=== PATIENT | male | born 1965 | race Caucasian/White ===

== ENCOUNTER 2017-01-01 07:24 | Day surgery (SDC) | payer OTHER ==
[~2017-01-01] VITALS: Ht 185.4 cm; Wt 88.0 kg
[~2017-01-01 07:24] MED LIST: CAPS42.58 TP; GABA-504 PO; INSU100V7 SUBQ; LISI-567 PO; MELO-259 PO; METF-496 PO; OMEP40CA36 PO; PROP40TA5 PO; Sodium Chloride LOK Flush 10 mL Syringe IV PRN; fentaNYL-PF 50 mCg/mL 2 mL Inj IVPUSH PRN
[2017-01-01 07:41] VITALS: BP 144/83; PULSE 55; RESP 14; O2SAT 100
[2017-01-01] MEDS: 0.9% Sodium Chloride 1,000 ML IV SCH ×2 (08:01→08:10)
[2017-01-01 08:14] VITALS: BP 133/71; PULSE 52; RESP 16; O2SAT 97
[2017-01-01 08:29] VITALS: BP 112/69; PULSE 71; RESP 14; O2SAT 98
--- NOTE | 2017-01-01 09:09 | ENDO ---
[address] [address] ENDOSCOPY PROCEDURE PATIENT: MEREDITH CARTER : 1965 MR#: [id number] ADMIT: 01/01/2017 JOB ID: [id number] DATE: 01/01/2017 PROCEDURE: Esophagogastroduodenoscopy. INDICATION: The patient with a history of esophageal varices and cirrhosis secondary to hepatitis C. The patient presents for variceal screening. The patient's ASA classification is 2. Mallampati score is 2. MEDICATIONS: 1. Versed 4 mg. 2. Fentanyl 100 mcg. INSTRUMENT USED: GIF H 180 AL. PROCEDURE DETAILS: After informed consent was obtained, the patient was brought into the GI suite, where he was placed on oxygen via nasal cannula and monitored with continuous pulse oximeter, telemetry and blood pressure monitoring. A time-out was performed. Then, he was placed in the left lateral decubitus position and medications were administered for sedation. A bite block was placed. The standard EGD scope was then inserted through the bite block and advanced under direct visualization to the second portion of duodenum without difficulty. FINDINGS: 1. Normal appearing duodenal bulb, first and second portion. 2. Normal appearing pylorus. In the antrum of the body, there was erythema and edema with a nodular appearing mucosa suggestive of gastritis. Multiple random biopsies were obtained. 3. Retroflexed views in the gastric body revealed a normal-appearing cardia and fundus. No gastric varices were appreciated. 4. The gastroesophageal junction was at approximately 43 cm and appeared regular. 5. In the distal esophagus, there were trace esophageal varices that flattened out with insufflation. 6. Remainder of the esophagus appeared normal otherwise. IMPRESSION: 1. Trace esophageal varices. 2. Portal gastropathy. 3. Antral gastritis. RECOMMENDATIONS: 1. Continue current medications. 2. Await biopsy results. 3. Followup in GI clinic in 3-4 weeks. 4. Repeat EGD in 2-3 years. COMPLICATIONS: None. ESTIMATED BLOOD LOSS: Less than 5 mL.
--- NOTE | 2017-01-02 14:24 | PATH ---
SURGICAL PATHOLOGY Attending Physician:Brittany Felix CASE STATUS: Signed Out PATIENT NAME: MEREDITH CARTER PID: [id number] : 1965 DATE COLLECTED:01/01/2017 15:38 SPECIMEN: Gastric, Biopsy CLINICAL HISTORY: 1. GASTRIC BIOPSY FINAL DIAGNOSIS: 1.GASTRIC BIOPSY: GASTRIC CORPUS WITH MILD CHRONIC GASTRITIS. Negative for Helicobacter organisms. Negative for intestinal metaplasia. No evidence of dysplasia or malignancy. ICD10 K29.70 GROSS DESCRIPTION: The specimen is received in one formalin filled container labeled with the patient's name, sublabeled "gastric" and consists of a 0.5 x 0.3 x 0.2 CM portion of tissue which is entirely submitted in one cassette. 01/01/2017 DAC MICRO DESCRIPTION: See diagnosis. ICD-9 CODES: CPT CODES: 1: 74221 Electronically Signed Out Esequiel Shultz MD [facility] [address], [place] [address] Technical component performed at [facility], [facility] [address], [address]
== END 2017-01-01 23:59 | disposition home or self-care (01) ==
LOC: END 07:24
PROVIDERS: ATTEND Internal Medicine Gastroenterology
DX: K29.50 Unspecified chronic gastritis without bleeding (principal); K74.69 Other cirrhosis of liver; K31.89 Other diseases of stomach and duodenum; I85.00 Esophageal varices without bleeding; K76.6 Portal hypertension; B18.2 Chronic viral hepatitis C; R19.7 Diarrhea, unspecified; I10 Essential (primary) hypertension; E11.42 Type 2 diabetes mellitus with diabetic polyneuropathy; D69.6 Thrombocytopenia, unspecified; F10.21 Alcohol dependence, in remission; F17.210 Nicotine dependence, cigarettes, uncomplicated; Z79.4 Long term (current) use of insulin; Z79.84 Long term (current) use of oral hypoglycemic drugs
CPT/HCPCS: 43239; 88305; 99152; J7030